=== PATIENT | male | born 1940 | race Caucasian/White ===

== ENCOUNTER 2021-05-21 22:48 | Emergency (ER) | payer MEDICARE, OTHER ==
[~2021-05-21 22:48] MED LIST: ASPIRIN EC81 MG PO; HCTZ25 MG PO; LEVEMIR VI100 UNITS/ SC; LIPITOR20 MG PO; METOPROLOL TART25 M1 PO; NORVASC10 MG PO; NOVOLOG VI100 UNIT/1 SC; SYNTHROID50 MCG PO; VITAMIN D-32000 UNIT PO; ZOFRAN4 MG PO
[2021-05-21 23:45] LABS: BASOPHIL 0.5 % (0-2); EOSINOPHIL 0.4 % (0-7); HCT 31.5 % (42.0-52.0); HGB 9.8 g/dl (13.2-18.0); MCH 29.5 pg (25.0-31.0); MCHC 31.1 g/dL (32.0-36.0); MCV 94.9 fL (78.0-100.0); MPV 10.2 fL (6.0-9.5); NEUTROPHIL 57.6 % (41-80); NRBC 0.4; PLT 180 K/uL (150-400); RBC 3.32 M/uL (4.70-6.00); RDW 15.9 % (11.5-14.0); WBC 8.3 K/uL (4.0-10.5)
[2021-05-22 00:03] LABS: ALBUMIN 3.4 g/dL (3.4-5.0); BILIRUBIN - TOTAL 0.6 mg/dL (0.2-1.0); BUN/CREAT RATIO (CALC) 13.5 RATIO; CREATININE 1.33 mg/dL (0.67-1.17); GLOBULIN (CALCULATION) 3.2 g/dL; POTASSIUM 3.8 mmol/L (3.5-5.1); TOTAL PROTEIN 6.6 g/dL (6.4-8.2)
[2021-05-22 00:43] LABS: BILIRUBIN NEGATIVE (NEGATIVE); BLOOD TRACE-INTACT Ery/uL (NEGATIVE); CLARITY CLEAR (CLEAR); COLOR YELLOW (YELLOW); GLUCOSE (U) NORMAL (NORMAL); LEUKOCYTES NEGATIVE Leu/uL (NEGATIVE); NITRITE NEGATIVE (NEGATIVE); PROTEIN NEGATIVE (NEGATIVE); SPECIFIC GRAVITY >=1.030 (1.001-1.030); UROBILINOGEN 0.2 mg/dL (0.2-1.0); pH 5.5 (5.0-9.0)
[2021-05-22 00:52] LABS: BACTERIA 1+; URINARY RBC RARE; URINARY WBC RARE
== END 2021-05-22 03:18 | disposition home or self-care (01) ==
LOC: FER 22:48
PROVIDERS: Emergency Medicine
DX: E11.649 Type 2 diabetes mellitus with hypoglycemia without coma (principal); I51.9 Heart disease, unspecified; F03.90 Unspecified dementia, unspecified severity, without behavioral disturbance, psychotic disturbance, mood disturbance, and anxiety; Z86.73 Personal history of transient ischemic attack (TIA), and cerebral infarction without residual deficits; Z79.02 Long term (current) use of antithrombotics/antiplatelets; Z79.899 Other long term (current) drug therapy
CPT/HCPCS: 36415; 71045; 80053; 81001; 84484; 85025; 93005